=== PATIENT | female | born 1970 | race Caucasian/White ===

== ENCOUNTER → 2017-06-11 | Outpatient (CLI) | payer SELFPAY ==
[~2017-06-11] MED LIST: ALPR-557 PO; AMIT50TA3 PO; ATEN25TA PO; DULO60CA6 PO; HYDR-2890 PO
[2017-06-11 08:51] LABS: MEAN PLATELET VOLUME 10.3 FL (7.4-10.4); RED BLOOD COUNT 4.31 10^6/uL (4.35-5.85); RED CELL DISTRIBUTION WIDTH 13.1 % (10.0-14.5)
[2017-06-11 09:04] LABS: BILIRUBIN,URINE NEGATIVE (NEGATIVE); KETONES,URINE NEGATIVE (NEGATIVE); LEUKOCYTE ESTERASE ,URINE 1+ (NEGATIVE); NITRITE,URINE NEGATIVE (NEGATIVE); PH,URINE 6.5 (5-9); PROTEIN,URINE NEGATIVE (NEGATIVE); UROBILINOGEN,URINE NORMAL (NORMAL)
[2017-06-11 09:12] LABS: ALANINE AMINOTRANSFERASE 14 U/L (0-55); ALBUMIN 3.6 GM/DL (3.2-4.5); ANION GAP 10 MMOL/L (5-14); ASPARTATE AMINO TRANSFERASE 24 U/L (5-34); BILIRUBIN,TOTAL 0.5 MG/DL (0.1-1.0); BLOOD UREA NITROGEN 6 MG/DL (7-18); BUN/CREATININE RATIO 8; CARBON DIOXIDE 23 MMOL/L (21-32); CHLORIDE 103 MMOL/L (98-107); CHOLESTEROL 224 MG/DL (< 200); CREATININE SERUM 0.73 MG/DL (0.60-1.30); DIRECT LDL 123 MG/DL (1-129); GFR ESTIMATED > 60; GLUCOSE 98 MG/DL (70-105); POTASSIUM 4.5 MMOL/L (3.6-5.0); SODIUM 136 MMOL/L (135-145); TOTAL PROTEIN 7.2 GM/DL (6.4-8.2); TRIGLYCERIDES 93 MG/DL (<150); VLDL CHOLESTEROL 19 MG/DL (5-40)
[2017-06-11 09:31] LABS: THYROID STIMULATING HORMONE 2.09 UIU/ML (0.35-4.94)
== END ==
LOC: LAB 08:26
PROVIDERS: ATTEND Family Medicine
DX: I10 Essential (primary) hypertension (principal); E78.5 Hyperlipidemia, unspecified; R82.99 Other abnormal findings in urine
CPT/HCPCS: 36415; 80053; 80061; 81000; 84443; 85027; 87077; 87088

== ENCOUNTER → 2017-06-27 | Outpatient (CLI) | payer SELFPAY ==
[2017-06-27 13:20] LABS: BILIRUBIN,URINE NEGATIVE (NEGATIVE); CLARITY,URINE CLEAR; COLOR,URINE YELLOW; GLUCOSE, URINE (UA) NEGATIVE (NEGATIVE); KETONES,URINE NEGATIVE (NEGATIVE); LEUKOCYTE ESTERASE ,URINE NEGATIVE (NEGATIVE); NITRITE,URINE NEGATIVE (NEGATIVE); PH,URINE 7 (5-9); PROTEIN,URINE NEGATIVE (NEGATIVE); UROBILINOGEN,URINE NORMAL (NORMAL)
[2017-06-27 13:29] LABS: BACTERIA,URINE FEW /HPF; WBC,URINE RARE /HPF
== END ==
LOC: LAB 12:59
PROVIDERS: ATTEND Family Medicine
DX: Z09 Encounter for follow-up examination after completed treatment for conditions other than malignant neoplasm (principal)
CPT/HCPCS: 81000

== ENCOUNTER → 2018-11-05 | Outpatient (CLI) | payer SELFPAY ==
[~2018-11-05] MED LIST changes: +NAPR-1071 PO
[2018-11-05 10:10] LABS: HEMOGLOBIN 14.4 G/DL (11.5-16.0)
[2018-11-05 10:13] LABS: BILIRUBIN,URINE NEGATIVE (NEGATIVE); CLARITY,URINE CLEAR; COLOR,URINE YELLOW; GLUCOSE, URINE (UA) NEGATIVE (NEGATIVE); KETONES,URINE NEGATIVE (NEGATIVE); LEUKOCYTE ESTERASE ,URINE NEGATIVE (NEGATIVE); NITRITE,URINE NEGATIVE (NEGATIVE); PH,URINE 7 (5-9); PROTEIN,URINE NEGATIVE (NEGATIVE); UROBILINOGEN,URINE NORMAL (NORMAL)
[2018-11-05 10:23] LABS: BACTERIA,URINE TRACE /HPF
[2018-11-05 10:41] LABS: ALANINE AMINOTRANSFERASE 17 U/L (0-55); ALBUMIN 3.8 GM/DL (3.2-4.5); ALKALINE PHOSPHATASE 103 U/L (40-136); BILIRUBIN,TOTAL 0.5 MG/DL (0.1-1.0); BUN/CREATININE RATIO 6; CALCIUM 9.5 MG/DL (8.5-10.1); CARBON DIOXIDE 25 MMOL/L (21-32); CHLORIDE 104 MMOL/L (98-107); CHOLESTEROL 242 MG/DL (< 200); CREATININE SERUM 0.68 MG/DL (0.60-1.30); GFR ESTIMATED > 60; GLUCOSE 83 MG/DL (70-105); HDL CHOLESTEROL 109 MG/DL (40-60); POTASSIUM 4.2 MMOL/L (3.6-5.0); SODIUM 139 MMOL/L (135-145); TOTAL PROTEIN 7.2 GM/DL (6.4-8.2); TRIGLYCERIDES 66 MG/DL (<150); VLDL CHOLESTEROL 13 MG/DL (5-40)
== END ==
LOC: LAB 09:54
PROVIDERS: ATTEND Family Medicine
DX: I10 Essential (primary) hypertension (principal); R60.9 Edema, unspecified
CPT/HCPCS: 36415; 80053; 80061; 81000; 85014; 85018

== ENCOUNTER 2018-11-10 13:44 | Emergency (ER) | payer OTHER ==
[~2018-11-10] VITALS: Ht 172.7 cm; Wt 90.7 kg
[~2018-11-10 13:44] MED LIST changes: -NAPR-1071 PO
--- NOTE | 2018-11-10 13:50 | ED Abdominal Pain ---
General Stated Complaint: L KNEE PAIN;FALL Source of Information: Patient Exam Limitations: No Limitations History of Present Illness Date Seen by Provider: November 10, 2018 Time Seen by Provider: 13:48 Initial Comments To ER with reports of left knee pain. She was of [facility] when she fell onto a flexed left knee. She states that she is had previous arthroscopy to the left knee and has been told that she needs a left knee replacement. Timing/Duration: 1/2 Hour Severity/Quality: Moderate Radiation: No Radiation Allergies and Home Medications Allergies Coded Allergies: Cortisone (Unverified Adverse Reaction, NAUSEA, 12/02/12) CORTISONE SHOTS IN KNEE Home Medications Alprazolam 0.5 Mg Tab, 0.5 MG PO QID, (Reported) Amitriptyline Hcl 50 Mg Tab, 50 MG PO HS PRN, (Reported) PRN SLEEP Atenolol 25 Mg Tablet, 25 MG PO DAILY, (Reported) Duloxetine Hcl 60 Mg Capsule.dr, 60 MG PO DAILY, (Reported) Hydrocodone Bit/Acetaminophen 1 Each Tablet, 10-325 MG PO TID, (Reported) Patient Home Medication List Home Medication List Reviewed: Yes Review of Systems Review of Systems Constitutional: see HPI EENTM: No Symptoms Reported Respiratory: No Symptoms Reported Cardiovascular: No Symptoms Reported Gastrointestinal: No Symptoms Reported Genitourinary: No Symptoms Reported Musculoskeletal: see HPI Skin: no symptoms reported Psychiatric/Neurological: No Symptoms Reported Physical Exam Vital Signs Vital Signs - First Documented 11/10/18 13:45 Temp 98.0 Pulse 68 Resp 20 B/P (MAP) 179/98 (125) Pulse Ox 100 Capillary Refill : Height/Weight/BMI Height: '" Weight: 275lbs. 0.0oz. 124.559841pf; BMI Method: General Appearance: WD/WN, no apparent distress HEENT: PERRL/EOMI, normal ENT inspection Respiratory: no respiratory distress, no accessory muscle use Gastrointestinal: normal bowel sounds, soft Extremities: pelvis stable, other (Tenderness with some ecchymosis to the anterior left knee over the patella. The patella is intact at least by palpation. She is able to lift her left foot up off of the bed. Distally at the foot she is neurovascularly intact.) Neurologic/Psychiatric: alert, normal mood/affect, oriented x 3 Skin: normal color, warm/dry Progress/Results/Core Measures Results/Orders My Orders Orders - JARRED MALAVE APRN Knee, Left, 3 Views (11/10/18 13:47) Vital Signs/I&O 11/10/18 13:45 Temp 98.0 Pulse 68 Resp 20 B/P (MAP) 179/98 (125) Pulse Ox 100 Departure Impression Primary Impression: Contusion of knee Qualified Codes: S80.02XA - Contusion of left knee, initial encounter Disposition: HOME, SELF-CARE Condition: Stable Departure-Patient Inst. Decision time for Depature: 14:40 Referrals: ANTONIO CURTIS MD (PCP/Family) Primary Care Physician Patient Instructions: Contusion (DC) Add. Discharge Instructions: 1. Ice pack at 30 minute intervals every 1-2 hours 2. Bernard wrap to the knee 3. Follow-up with your primary care provider or your orthopedic surgeon for further evaluation within 1 week. Scripts Naproxen (Naprosyn) 500 Mg Tablet 500 MG PO BID PRN for PAIN-MODERATE TO SEVERE, #30 TAB 0 Refills Prov: JARRED MALAVE APRN 11/10/18 Work/School Note: Work Release Form Date Seen in the Emergency Department: November 10, 2018 Return to Work: November 12, 2018 JARRED MALAVE APRN November 10, 2018 13:50
--- NOTE | 2018-11-10 14:38 | Diagnostic Imaging Report ---
INDICATION: Fall and left knee pain. TIME OF EXAM: 02:23 p.m. Three views of the left knee were obtained. There is a medial and lateral compartmental degenerative change with joint space narrowing and marginal spurring. There are spurring of the tibial spines. There appears to be some chondrocalcinosis of the medial compartment. No fracture, dislocation or effusion is detected. IMPRESSION: Degenerative changes. No acute bony abnormality is detected. Dictated by: Dictated on workstation # [id number]
[2018-11-10] MEDS ORDERED: NAPR-1071 PO (14:41)
[2018-11-10 14:50] VITALS: BP 179/98
== END 2018-11-10 15:00 | disposition home or self-care (01) ==
LOC: EDUNIT# 13:44 → ER 13:45
DX: S80.02XA Contusion of left knee, initial encounter (principal); Z88.8 Allergy status to other drugs, medicaments and biological substances; W18.30XA Fall on same level, unspecified, initial encounter; X50.1XXA Overexertion from prolonged static or awkward postures, initial encounter
CPT/HCPCS: 73562

== ENCOUNTER → 2019-12-31 | Outpatient (CLI) | payer OTHER ==
[~2019-12-31] MED LIST changes: +NAPR-1071 PO
[2019-12-31 09:16] LABS: BILIRUBIN,URINE NEGATIVE (NEGATIVE); CLARITY,URINE CLEAR; COLOR,URINE YELLOW; GLUCOSE, URINE (UA) NEGATIVE (NEGATIVE); KETONES,URINE NEGATIVE (NEGATIVE); LEUKOCYTE ESTERASE ,URINE NEGATIVE (NEGATIVE); NITRITE,URINE NEGATIVE (NEGATIVE); PH,URINE 7.5 (5-9); PROTEIN,URINE NEGATIVE (NEGATIVE)
[2019-12-31 09:23] LABS: BACTERIA,URINE NEGATIVE /HPF; SQUAMOUS EPITHELIAL CELL,UR RARE /HPF; WBC,URINE RARE /HPF
[2019-12-31 09:38] LABS: BUN/CREATININE RATIO 10; CALCIUM 9.5 MG/DL (8.5-10.1); CARBON DIOXIDE 24 MMOL/L (21-32); CHLORIDE 99 MMOL/L (98-107); CHOLESTEROL 227 MG/DL (< 200); CREATININE SERUM 0.73 MG/DL (0.60-1.30); GFR ESTIMATED > 60; GLUCOSE 88 MG/DL (70-105); HDL CHOLESTEROL 111 MG/DL (40-60); POTASSIUM 4.5 MMOL/L (3.6-5.0); SODIUM 136 MMOL/L (135-145); TRIGLYCERIDES 62 MG/DL (<150); VLDL CHOLESTEROL 12 MG/DL (5-40)
== END ==
LOC: LAB 08:42
PROVIDERS: ATTEND Family Medicine
DX: I10 Essential (primary) hypertension (principal)
CPT/HCPCS: 36415; 80048; 80061; 81000

== ENCOUNTER 2020-01-12 09:37 | Emergency (ER) | payer OTHER ==
[~2020-01-12] VITALS: Ht 170.1 cm; Wt 88.6 kg
--- NOTE | 2020-01-12 09:57 | ED Upper Extremity ---
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 She had got out of her car and was wearing flip-flops. She slipped on the wet grass and fell forward. She did partially catch herself but landed on her right shoulder. Had pain at that time. Denies hitting her head, loss of consciousness or abrasions. Complains of pain to her right shoulder when she tries to move or lift her arm. Denies weakness, numbness or difficulty with movement of her hand. Onset: just prior to arrival (approximately 30 minutes ago) Severity: moderate Pain/Injury Location: right shoulder Method of Injury: direct blow, fell Modifying Factors: Improves With Immobilization; Worse With Movement (YI GIBBONS MD) Allergies and Home Medications Allergies Coded Allergies: Cortisone (Unverified Adverse Reaction, NAUSEA, 12/02/12) CORTISONE SHOTS IN KNEE Home Medications Alprazolam 0.5 Mg Tab, 0.5 MG PO QID, (Reported) Amitriptyline Hcl 50 Mg Tab, 50 MG PO HS PRN, (Reported) PRN SLEEP Atenolol 25 Mg Tablet, 25 MG PO DAILY, (Reported) Duloxetine Hcl 60 Mg Capsule.dr, 60 MG PO DAILY, (Reported) Hydrocodone Bit/Acetaminophen 1 Each Tablet, 10-325 MG PO TID, (Reported) Naproxen 500 Mg Tablet, 500 MG PO BID PRN for PAIN-MODERATE TO SEVERE Prescribed by: JARRED MALAVE on 11/10/18 9441 Patient Home Medication List Home Medication List Reviewed: Yes (YI GIBBONS MD) Review of Systems Constitutional: see HPI; No chills, No fever Respiratory: no symptoms reported Cardiovascular: no symptoms reported Musculoskeletal: see HPI, joint pain, muscle pain, muscle stiffness Skin: no symptoms reported Psychiatric/Neurological: No Symptoms Reported (YI GIBBONS MD) Past Fvlabde-Cdrfws-Vayyyg Hx Past Med/Social Hx: Reviewed Nursing Past Med/Soc Hx (YI GIBBONS MD) Patient Social History Alcohol Use: Occasionally Uses Recreational Drug Use: No Smoking Status: Current Everyday Smoker Type Used: Cigarettes 2nd Hand Smoke Exposure: Yes Recent Foreign Travel: No Contact w/Someone Who Travel: No Recent Infectious Disease Expo: No Recent Hopitalizations: No (YI GIBBONS MD) Seasonal Allergies Seasonal Allergies: No (YI GIBBONS MD) Past Medical History Orthopedic Respiratory: No Cardiac: Yes Hypertension Neurological: No Gastrointestinal: No Musculoskeletal: Yes (TORN MEDIAL & LATERAL MENISCUS LEFT KNEE) Endocrine: No Integumentary: No Blood Disorders: No (YI GIBBONS MD) Family Medical History Reviewed Nursing Family Hx (YI GIBBONS MD) No Pertinent Family Hx (YI GIBBONS MD) Physical Exam Vital Signs Vital Signs - First Documented 01/12/20 09:45 Temp 36.7 Pulse 85 Resp 18 B/P (MAP) 145/94 (111) (JARRED MALAVE APRN) Vital Signs Capillary Refill : Less Than 3 Seconds (YI GIBBONS MD) Height, Weight, BMI Height: 5'8.00" Weight: 200lbs. 0oz. 90.563158ni; 30.00 BMI Method:Stated General Appearance: WD/WN, mild distress (pain related) Cardiovascular: regular rate, rhythm, no murmur Respiratory: no respiratory distress, wheezing (few scattered expiratory wheezes) Back: normal inspection, no vertebral tenderness Shoulder: limited ROM (pain limited), pain (pain with active range of motion that minimal or none with passive range of motion of the right shoulder except for with high abduction); No soft tissue tenderness, No swelling Elbow/Forearm: normal inspection, non-tender, no evidence of injury, normal ROM, Right Wrist: Yes normal inspection, Yes normal ROM Hand: non-tender, no evidence of injury, normal ROM, Right Neurologic/Tendon: normal sensation, normal motor functions Neurologic/Psychiatric: alert, oriented x 3 Skin: normal color, warm/dry (YI GIBBONS MD) Progress/Results/Core Measures Results/Orders Vital Signs/I&O 01/12/20 09:45 Temp 36.7 Pulse 85 Resp 18 B/P (MAP) 145/94 (111) (MALAVE,PETER J [employer]) Blood Pressure Mean: 111 Progress Progress Note : Progress Note Seen and evaluated. X-ray right shoulder and right clavicle. Patient has her own pain medicine and she will take that after x-ray. Declined pain medicine from the emergency department. Monitor patient. (YI GIBBONS MD) Diagnostic Imaging Diagonstic Imaging: Xray Plain Films/CT/US/NM/MRI: other Comments [facility] [place] NAME: MISTI LOW [facility] REC#: [id number] PT STATUS: DEP ER : 1970 PHYSICIAN: YI GIBBONS MD ADMIT DATE: 01/12/20/ER Signed Date of Exam:01/12/20 SHOULDER, RIGHT, 3 VIEWS INDICATION: Fall with right shoulder injury. FINDINGS: AP, oblique, and trans-scapular views of the right shoulder reveal mildly displaced fracture through the distal clavicle without evidence of dislocation. No other acute fracture or malalignment is identified. Note is made of linear metallic object projecting over the midchest on the AP image. This is not confirmed on other views and may be artifactual. IMPRESSION: 1. Mildly displaced distal right clavicle fracture without dislocation. Otherwise, no acute abnormality is identified. 2. Clinical correlation would be useful with regard to wire-like metallic object projecting over the central chest on a single view. Dictated by: Dictated on workstation # [id number] Dict: 01/12/20 1032 Trans: 01/12/20 1206 [id number] Interpreted by: AMY BLANKENSHIP MD Electronically signed by: AMY BLANKENSHIP MD 01/12/20 1206 Diagonstic Imaging: Xray Plain Films/CT/US/NM/MRI: other Comments [facility] [place] NAME: MISTI LOW [facility] REC#: [id number] PT STATUS: DEP ER : 1970 PHYSICIAN: YI GIBBONS MD ADMIT DATE: 01/12/20/ER Signed Date of Exam:01/12/20 CLAVICLE, RIGHT INDICATION: Fall with right shoulder pain AP and angled views of the right clavicle reveal mildly displaced fracture through the distal shaft of the right clavicle. There appears to be maintenance of acromioclavicular joint. No other acute fracture or malalignment is identified. IMPRESSION: Mildly displaced distal right clavicle fracture without associated dislocation. Dictated by: Dictated on workstation # [id number] Dict: 01/12/20 1028 Trans: 01/12/20 1206 [facility] [id number] Interpreted by: AMY BLANKENSHIP MD Electronically signed by: AMY BLANKENSHIP MD 01/12/20 1206 (YI GIBBONS MD) Departure Impression Primary Impression: Clavicle fracture Qualified Codes: S42.031A - Displaced fracture of lateral end of right clavicle, initial encounter for closed fracture Disposition: HOME, SELF-CARE Condition: Stable Departure-Patient Inst. Decision time for Depature: 10:42 (JARRED MALAVE APRN) Referrals: ANTONIO CURTIS MD (PCP/Family) Primary Care Physician BRANDON URIAS MD, MICHAEL P MD Patient Instructions: Clavicle Fracture Add. Discharge Instructions: 1. Wear the sling at all 3 follow-up with orthopedics 2. Follow-up with your doctor next week. Return to ER for any worsening. All discharge instructions reviewed with patient and/or family. Voiced understanding. YI GIBBONS MD Jan 12, 2020 09:57 JARRED MALAVE APRN Jan 12, 2020 10:43
--- OUTSIDE RECORDS SUMMARY | 2020-01-12 10:34 | XMS REPORT ---
Author Author Chiara Denise Doctor Organization [facility] Address Unknown Phone Unavailable Care Team Providers Care Head Of Academic Technology Name Role Phone Migration, Doctor Unavailable Unavailable PROBLEMS Type Condition ICD9-CM Code [id number] Code Onset Dates Condition S tatus SNOMED Code Problem Pain in joint, lower leg 719.46 Activ e [id number] Problem Other and unspecified derangement of medial meniscus 717.3 Active 802031527 ALLERGIES No Information ENCOUNTERS Encounter Location Date Diagnosis [address] [id number] [id number] Jul, Dental caries, unspecified K02.[address] [id number] [id number] Jun, Dental examination Z01.20 [place] [address] [place] [phone] Sep, [facility] [address] [place] [id number] [place] [phone] Sep, [facility] [address] [place] [id number] [place] [phone] October, [facility] [address] [facility] [id number] [address] [place] [phone] October, [facility] [address] [place] [id number] [place] [phone] October, [facility] [address] [place] [phone] October, IMMUNIZATIONS No Known Immunizations SOCIAL HISTORY Never Assessed REASON FOR VISIT [facility] [place] PLAN OF CARE VITAL SIGNS MEDICATIONS No Known Medications RESULTS No Results PROCEDURES No Known procedures INSTRUCTIONS MEDICATIONS ADMINISTERED No Known Medications MEDICAL (GENERAL) HISTORY Type Description Date Medical History high blood pressure Medical History arthritis Medical History back trouble Surgical History gallbladder Surgical History left knee Surgical History tublar Surgical History tonsils
--- OUTSIDE RECORDS SUMMARY | 2020-01-12 10:34 | XMS REPORT ---
Author Author Chiara Denise Doctor Organization [facility] Address Unknown Phone Unavailable Care Team Providers Care Soaking Room Operator Name Role Phone Migration, Doctor Unavailable Unavailable PROBLEMS Type Condition ICD9-CM Code [id number] Code Onset Dates Condition S tatus SNOMED Code Problem Pain in joint, lower leg 719.46 Activ e [id number] Problem Other and unspecified derangement of medial meniscus 717.3 Active 836415461 ALLERGIES No Information ENCOUNTERS Encounter Location Date Diagnosis [address] [id number] [id number] Jul, Dental caries, unspecified K02.[address] [id number] [id number] Jun, Dental examination Z01.20 [place] [address] [place] [id number] [place] [phone] Sep, [place] [address] [place] [id number] [place] [phone] Sep, [place] [address] [place] [id number] [place] [phone] October, [place] [address] [facility] [id number] [place] [phone] October, [place] [address] [place] [id number] [place] [phone] October, [place] [address] [place] [phone] October, IMMUNIZATIONS No Known Immunizations SOCIAL HISTORY Never Assessed REASON FOR VISIT [facility] [place] PLAN OF CARE VITAL SIGNS MEDICATIONS Medication Instructions Dosage Frequency Start Date End Date Duration S tatus Atenolol 25 mg take 1 tablet (25 mg) by oral route once da aidee October, Active amitriptyline 50 mg take 1 tablet (50 mg) by ora l route once daily at bedtime October, Active Hydrocodone-Acetaminophen 10-325 mg take 1 tablet by oral route every 4-6 hours as needed for pain October, Act viridiana Cymbalta 60 mg take 1 capsule (60 mg) by oral route once d aily October, Active Alprazolam 0.5 mg take 1 tablet (0.5 mg) by oral route 3 times per day October, Active RESULTS No Results PROCEDURES No Known procedures INSTRUCTIONS MEDICATIONS ADMINISTERED No Known Medications MEDICAL (GENERAL) HISTORY Type Description Date Medical History high blood pressure Medical History arthritis Medical History back trouble Surgical History gallbladder Surgical History left knee Surgical History tublar Surgical History tonsils
--- OUTSIDE RECORDS SUMMARY | 2020-01-12 10:34 | XMS REPORT ---
Author Author Chiara RAM Organization [employer] Address Unknown Phone Unavailable Care Team Providers Care Legal Aid Name Role Phone DIOGO RAM CP Unavailable Allergies No Known Allergies Problems Problem Type Condition Code Onset Dates Condition Statu s Problem Other and unspecified derangement of medial meniscus 7 17.3 Active Assessment Dental examination Z01.20 Active Problem Pain in joint, lower leg 719.46 Act viridiana Medications Medication Code System Code Instructions Start Date End Date Status Dosage Doxepin HCl [facility] [address]-25 not de fined Hydrocodone Bitartrate [facility] [address]-54 not defined Xanax [facility] [address]-65 not define d Procedures Procedure Coding System Code Date PANORAMIC FILM SEE ALSO CODE 94199 CPT-4 D0330 Jul 13, 2015 COMP ORAL EVALUATION - NEW/EST PT CPT-4 D0150 Jul 13, 2015 Vital Signs Date/Time: Jul 13, 2015 Blood Pressure Diastolic 86 mmHg Blood Pressure Systolic 151 mmHg Height 69 in Results No Known Results Summary Purpose [employer] Submission
--- OUTSIDE RECORDS SUMMARY | 2020-01-12 10:34 | XMS REPORT ---
Author Author Chiara Denise Doctor Organization [facility] Address Unknown Phone Unavailable Care Team Providers Care Anesthesia Associate Name Role Phone Migration, Doctor Unavailable Unavailable PROBLEMS Type Condition ICD9-CM Code JTG99-JJ Code Onset Dates Condition S tatus SNOMED Code Problem Pain in joint, lower leg 719.46 Activ e [id number] Problem Other and unspecified derangement of medial meniscus 717.3 Active 521963134 ALLERGIES No Information ENCOUNTERS Encounter Location Date Diagnosis [address] [id number] [id number] Jul, Dental caries, unspecified K02.[address] [id number] [id number] Jun, Dental examination Z01.20 [place] [address] [place] [phone] Sep, [facility] [address] [place] [id number] [place] [phone] Sep, [facility] [address] [place] [id number] [place] [phone] October, [facility] [address] [facility] [id number] [address] [place] [phone] October, [facility] [address] [place] [id number] [place] [phone] October, [facility] [address] [place] [phone] October, IMMUNIZATIONS No Known Immunizations SOCIAL HISTORY Never Assessed REASON FOR VISIT [facility] [place] PLAN OF CARE VITAL SIGNS MEDICATIONS No Known Medications RESULTS No Results PROCEDURES No Known procedures INSTRUCTIONS MEDICATIONS ADMINISTERED No Known Medications MEDICAL (GENERAL) HISTORY Type Description Date Medical History high blood pressure Medical History arthritis Medical History back trouble Surgical History gallbladder Surgical History left knee Surgical History tublar Surgical History tonsils
--- OUTSIDE RECORDS SUMMARY | 2020-01-12 10:35 | XMS REPORT | Continuity of Care Document ---
Demographics Preferred Language Unknown Marital Status Unknown Jehovah'S Witness Affiliation Unknown Race Unknown Ethnic Group Unknown Author Organization Unknown Address Unknown Phone Unavailable Allergies Active Description Code Type Severity Reaction Onset Reported/Identified Relationship to Patient Clinical Status Yes NO KNOWN DRUG ALLERGIES UNKNOWN UNKNOWN Yes cortisone [id number] Drug Allergy Unknown NAUSEA 12/02/2012 Medications There is no data. Problems Date Dx Coded Attending Type Code Diagnosis Diagnosed By 10/25/2010 724.2 BACK PAIN, LOWER 10/25/2010 V58.69 PAT G-TERM (CURRENT) USE OF OTHER MEDICATIONS 11/04/2012 719.46 CARON N IN JOINT INVOLVING LOWER LEG 11/04/2012 719.46 CARON N IN JOINT INVOLVING LOWER LEG 11/04/2012 719.46 CARON N IN JOINT INVOLVING LOWER LEG 11/05/2012 717.3 OTHE R AND UNSPECIFIED DERANGEMENT OF MEDIAL MENISCUS 11/05/2012 717.3 OTHE R AND UNSPECIFIED DERANGEMENT OF MEDIAL MENISCUS 12/07/2012 JOAQUIM MARTI MD Ot 278. 00 OBESITY, NOS 12/07/2012 JOAQUIM MARTI MD Ot 305. 1 TOBACCO USE DISORDER 12/07/2012 JOAQUIM MARTI MD Ot 727. 09 SYNOVITIS NEC 12/07/2012 JOAQUIM MARTI MD Ot 733. 92 CHONDROMALACIA 12/07/2012 JOAQUIM MARTI MD Ot 836. 1 TEAR LAT MENISC KNEE-CUR 12/07/2012 JOAQUIM MARTI MD Ot E000 .8 OTHER EXTERNAL CAUSE STATUS 12/07/2012 JOAQUIM MARTI MD Ot E927 .0 OVEREXERTION FROM SUDDEN STRENUOUS MOVEM 12/07/2012 JOAQUIM MARTI MD Ot V58. 69 OTH MED,LT,CURRENT USE 04/22/2013 VINCE HARMON, CALE Sifuentes Ot 453.40 ACUTE VENOUS EMBOLISM THROMBOSIS UNSP 06/13/2014 EVER HARMON, HARPER Ferro Ot 401 .1 06/13/2014 HARPER CURTIS MD Ot 783 .1 06/13/2014 Ot 722.52 06/13/2014 ARABELLA YUN SIDE PANEL HANGER Ot 717. 5 06/13/2014 ARABELLA YUN SIDE PANEL HANGER Ot 717. 3 06/13/2014 ARABELLA YUN SIDE PANEL HANGER Ot 717. 40 06/13/2014 ARABELLA YUN SIDE PANEL HANGER Ot 719. 06 06/13/2014 JOAQUIM MARTI MD L Ot 717. 3 06/13/2014 JOAQUIM MARTI MD L Ot V72. 81 06/13/2014 JOAQUIM MARTI MD L Ot V74. 8 06/13/2014 JOAQUIM MARTI MD L Ot 453. 40 06/13/2014 Ot 453.40 06/13/2014 HARPER CURTIS MD Ot 401 .1 06/13/2014 HARPER CURTIS MD A Ot 783 .1 07/11/2014 Ot 722.52 07/11/2014 ARABELLA YUN SIDE PANEL HANGER Ot 717. 5 07/11/2014 ARABELLA YUN SIDE PANEL HANGER Ot 717. 3 07/11/2014 ARABELLA YUN SIDE PANEL HANGER Ot 717. 40 07/11/2014 ARABELLA YUN SIDE PANEL HANGER Ot 719. 06 07/11/2014 JOAQUIM MARTI MD L Ot 717. 3 07/11/2014 JOAQUIM MARTI MD L Ot V72. 81 07/11/2014 JOAQUIM MARTI MD Ot V74. 8 07/11/2014 JOAQUIM MARTI MD Ot 453. 40 07/11/2014 Ot 453.40 07/11/2014 HARPER CURTIS MD Ot 401 .1 07/11/2014 HARPER CURTIS MD A Ot 783 .1 01/05/2015 HARPER CURTIS MD A Ot 401 .1 01/05/2015 JONATHON CURTIS MDA A Ot 783 .1 03/14/2015 Ot 722.52 03/14/2015 ARABELLA YUN SIDE PANEL HANGER Ot 717. 5 03/14/2015 ARABELLA YUN SIDE PANEL HANGER Ot 717. 3 03/14/2015 ARABELLA YUN SIDE PANEL HANGER Ot 717. 40 03/14/2015 ARABELLA YUN SIDE PANEL HANGER Ot 719. 06 03/14/2015 JOAQUIM MARTI MD L Ot 717. 3 03/14/2015 JOAQUIM MARTI MD L Ot V72. 81 03/14/2015 JOAQUIM MARTI MD L Ot V74. 8 03/14/2015 JOAQUIM MARTI MD Ot 453. 40 03/14/2015 Ot 453.40 03/14/2015 HARPER CURTIS MD Ot 401 .1 03/14/2015 HARPER CURTIS MD Ot 783 .1 06/05/2015 HARPER CURTIS MD Ot 401 .9 06/05/2015 HARPER CURTIS MD Ot V58.69 06/15/2015 HARPER CURTIS MD Ot 401 .9 06/15/2015 HARPER CURTIS MD Ot V58.69 06/03/2016 ARABELLA YUN SIDE PANEL HANGER Ot 717. 5 DERANGEMENT MENISCUS NEC 06/03/2016 ARABELLA YUN SIDE PANEL HANGER Ot 717. 3 DERANG MED MENISCUS NEC 06/03/2016 ARABELLA YUN SIDE PANEL HANGER Ot 717. 40 DERANG LAT MENISCUS NOS 06/03/2016 ARABELLA YUN SIDE PANEL HANGER Ot 719. 06 JOINT EFFUSION-L/LEG 06/03/2016 JOAQUIM MARTI MD Ot 717. 3 DERANG MED MENISCUS NEC 06/03/2016 JOAQUIM MARTI MD Ot V72. 81 [id number] CARDIOVASCULAR 06/03/2016 JOAQUIM MARTI MD Ot V74. 8 SCREEN-BACTERIAL DIS NEC 06/03/2016 JOAQUIM MARTI MD Ot 453. 40 ACUTE VENOUS EMBOLISM THROMBOSIS UNSP 06/03/2016 Ot 453.40 ACU TE VENOUS EMBOLISM THROMBOSIS UNSP 06/03/2016 HARPER CURTIS MD Ot 401 .1 BENIGN HYPERTENSION 06/03/2016 HARPER CURTIS MD Ot 783 .1 ABNORMAL WEIGHT GAIN 06/03/2016 HARPER CURTIS MD Ot 401 .9 HYPERTENSION NOS 06/03/2016 HARPER CURTIS MD Ot V58.69 OT MED,LT,CURRENT USE 06/04/2016 HARPER CURTIS MD Ot I10 ESSENTIAL (PRIMARY) HYPERTENSION 06/09/2016 HARPER CURTIS MD Ot I10 ESSENTIAL (PRIMARY) HYPERTENSION 07/02/2016 HARPER CURTIS MD Ot I10 ESSENTIAL (PRIMARY) HYPERTENSION 07/03/2016 HARPER CURTIS MD Ot I10 ESSENTIAL (PRIMARY) HYPERTENSION 03/07/2017 W 278.00 OBE SITY, UNSPECIFIED 03/07/2017 W 401.9 UNSP ECIFIED ESSENTIAL HYPERTENSION 03/07/2017 W 715.96 OST EOARTHROSIS, UNSPECIFIED WHETHER GENERALIZED OR LOCALIZED, INVOLVING LOWER LEG 03/07/2017 A 722.52 DEG ENERATION OF LUMBAR OR LUMBOSACRAL INTERVERTEBRAL DISC 03/07/2017 W E66.8 OTHE R OBESITY 03/07/2017 W I10 ESSENT IAL (PRIMARY) HYPERTENSION 03/07/2017 W M17.9 OSTE OARTHRITIS OF KNEE, UNSPECIFIED 03/07/2017 A 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, THORACOLUMBAR REGION 06/04/2017 W 401.1 DIAN GN ESSENTIAL HYPERTENSION 06/04/2017 W 719.46 CARON N IN JOINT INVOLVING LOWER LEG 06/04/2017 A 724.5 BACK ACHE, UNSPECIFIED 06/04/2017 W I10 ESSENT IAL (PRIMARY) HYPERTENSION 06/04/2017 W M25.569 PA IN IN UNSPECIFIED KNEE 06/04/2017 A R52 PAIN, UNSPECIFIED 06/27/2017 HARPER CURTIS MD Ot E78 .5 HYPERLIPIDEMIA, UNSPECIFIED 06/27/2017 HARPER CURTIS MD Ot I10 ESSENTIAL (PRIMARY) HYPERTENSION 06/27/2017 HARPER CURTIS MD Ot R82.99 OTHER ABNORMAL FINDINGS IN URINE 07/29/2017 HARPER CURTIS MD Ot E78 .5 HYPERLIPIDEMIA, UNSPECIFIED 07/29/2017 HARPER CURTIS MD Ot I10 ESSENTIAL (PRIMARY) HYPERTENSION 07/29/2017 HARPER CURTIS MD Ot R82.99 OTHER ABNORMAL FINDINGS IN URINE 07/29/2017 HARPER CURTIS MD Ot Z09 ENCNTR FOR F/U EXAM AFT TRTMT FOR COND O 09/26/2017 W 715.96 OST EOARTHROSIS, UNSPECIFIED WHETHER GENERALIZED OR LOCALIZED, INVOLVING LOWER LEG 09/26/2017 A 724.2 LUMBAGO 09/26/2017 W M17.9 OSTE OARTHRITIS OF KNEE, UNSPECIFIED 09/26/2017 A M54.5 LOW BACK PAIN 12/19/2017 W 401.0 GIULIA GNANT ESSENTIAL HYPERTENSION 12/19/2017 W 719.46 CARON N IN JOINT INVOLVING LOWER LEG 12/19/2017 A 724.2 LUMBAGO 12/19/2017 W I10 ESSENT IAL (PRIMARY) HYPERTENSION 12/19/2017 W M25.569 PA IN IN UNSPECIFIED KNEE 12/19/2017 A M54.5 LOW BACK PAIN 03/13/2018 A 401.0 GIULIA NENA ESSENTIAL HYPERTENSION 03/13/2018 W 715.90 OST EOARTHROSIS, UNSPECIFIED WHETHER GENERALIZED OR LOCALIZED, INVOLVING UNSPECIFIED SITE 03/13/2018 W 724.2 LUMBAGO 03/13/2018 A I10 ESSENT IAL (PRIMARY) HYPERTENSION 03/13/2018 W M19.90 UNS PECIFIED OSTEOARTHRITIS, UNSPECIFIED SITE 03/13/2018 W M54.5 LOW BACK PAIN 04/17/2018 HARPER CURTIS MD, Ot Z09 ENCNTR FOR F/U EXAM AFT TRTMT FOR COND O 04/17/2018 HARPER CURTIS MD, Ot E78 .5 HYPERLIPIDEMIA, UNSPECIFIED 04/17/2018 HARPER CURTIS MD, Ot I10 ESSENTIAL (PRIMARY) HYPERTENSION 04/17/2018 HARPER CURTIS MD Ot R82.99 OTHER ABNORMAL FINDINGS IN URINE 11/10/2018 HARPER CURTIS MD Ot 401 .1 BENIGN HYPERTENSION 11/10/2018 HARPER CURTIS MD Ot 783 .1 ABNORMAL WEIGHT GAIN 11/10/2018 HARPER CURITS MD Ot 401 .9 HYPERTENSION NOS 11/10/2018 HARPER CURTIS MD, Ot V58.69 OTH MED,LT,CURRENT USE 11/10/2018 HARPER CURTIS MD Ot I10 ESSENTIAL (PRIMARY) HYPERTENSION 11/10/2018 HARPER CURTIS MD, Ot E78 .5 HYPERLIPIDEMIA, UNSPECIFIED 11/10/2018 HARPER CURTIS MD Ot I10 ESSENTIAL (PRIMARY) HYPERTENSION 11/10/2018 HARPER CURTIS MD Ot R82.99 OTHER ABNORMAL FINDINGS IN URINE 11/10/2018 HARPER CURTIS MD, Ot Z09 ENCNTR FOR F/U EXAM AFT TRTMT FOR COND O 11/10/2018 JARRED MALAVE APRN Ot M25.562 PAIN IN LEFT KNEE 11/10/2018 JARRED MALAVE APRN Ot S80.02XA CONTUSION OF LEFT KNEE, INITIAL ENCOUNTE 11/10/2018 JARRED MALAVE APRN Ot W18.30XA FALL ON SAME LEVEL, UNSPECIFIED, INITIAL 11/10/2018 JARRED MALAVE APRN Ot X50.1XXA OVEREXERTION FROM PROLONGED STATIC OR AW 11/10/2018 JARRED MALAVE APRN Ot Z88 .8 ALLERGY STATUS TO OTH DRUG/MEDS/BIOL SUB 11/10/2018 HARPER CURTIS MD Ot 401 .1 BENIGN HYPERTENSION 11/10/2018 HARPER CURTIS MD Ot 783 .1 ABNORMAL WEIGHT GAIN 11/10/2018 HARPER CURTIS MD Ot 401 .9 HYPERTENSION NOS 11/10/2018 HARPER CURTIS MD Ot V58.69 OTH MED,LT,CURRENT USE 11/10/2018 HARPER CURTIS MD Ot I10 ESSENTIAL (PRIMARY) HYPERTENSION 11/10/2018 HARPER CURTIS MD Ot E78 .5 HYPERLIPIDEMIA, UNSPECIFIED 11/10/2018 HARPER CURTIS MD Ot I10 ESSENTIAL (PRIMARY) HYPERTENSION 11/10/2018 HARPER CURTIS MD Ot R82.99 OTHER ABNORMAL FINDINGS IN URINE 11/10/2018 HARPER CURTIS MD Ot Z09 ENCNTR FOR F/U EXAM AFT TRTMT FOR COND O 11/10/2018 HARPER CURTIS MD Ot I10 ESSENTIAL (PRIMARY) HYPERTENSION 11/10/2018 HARPER CURTIS MD Ot R60 .9 EDEMA, UNSPECIFIED 11/12/2018 JARRED MALAVE APRN Ot M25.562 PAIN IN LEFT KNEE 11/12/2018 JARRED MALAVE APRN Ot S80.02XA CONTUSION OF LEFT KNEE, INITIAL ENCOUNTE 11/12/2018 JARRED MALAVE APRN Ot W18.30XA FALL ON SAME LEVEL, UNSPECIFIED, INITIAL 11/12/2018 JARRED MALAVE APRN Ot X50.1XXA OVEREXERTION FROM PROLONGED STATIC OR AW 11/12/2018 JARRED MALAVE APRN Ot Z88 .8 ALLERGY STATUS TO OTH DRUG/MEDS/BIOL SUB 12/01/2018 HARPER CURTIS MD Ot 401 .1 BENIGN HYPERTENSION 12/01/2018 HARPER CURTSI MD Ot 783 .1 ABNORMAL WEIGHT GAIN 12/01/2018 HARPER CURTIS MD Ot 401 .9 HYPERTENSION NOS 12/01/2018 EVER MD, HARPER A Ot V58.69 OTH MED,LT,CURRENT USE 12/01/2018 EVER HARMON, HARPER Ferro Ot I10 ESSENTIAL (PRIMARY) HYPERTENSION 12/01/2018 EVER HARMON, HARPER Ferro Ot E78 .5 HYPERLIPIDEMIA, UNSPECIFIED 12/01/2018 EVER HARMON, HARPER A Ot I10 ESSENTIAL (PRIMARY) HYPERTENSION 12/01/2018 HARPER CURTIS MD Ot R82.99 OTHER ABNORMAL FINDINGS IN URINE 12/01/2018 HARPER CURTIS MD Ot Z09 ENCNTR FOR F/U EXAM AFT TRTMT FOR COND O 12/01/2018 HARPER CURTIS MD Ot I10 ESSENTIAL (PRIMARY) HYPERTENSION 12/01/2018 HARPER CURTIS MD Ot R60 .9 EDEMA, UNSPECIFIED 12/02/2018 EVER HARMON, HARPER Ferro Ot I10 ESSENTIAL (PRIMARY) HYPERTENSION 12/02/2018 EVER HARMON, HARPER Ferro Ot R60 .9 EDEMA, UNSPECIFIED 02/05/2019 HARPER CURTIS MD Ot I10 ESSENTIAL (PRIMARY) HYPERTENSION 02/05/2019 HARPER CURTIS MD Ot R60 .9 EDEMA, UNSPECIFIED 02/06/2019 HARPER CURTIS MD Ot I10 ESSENTIAL (PRIMARY) HYPERTENSION 02/06/2019 HARPER CURTIS MD Ot R60 .9 EDEMA, UNSPECIFIED 12/31/2019 HARPER CURTIS MD Ot 401 .9 HYPERTENSION NOS 12/31/2019 HARPER CURTIS MD Ot V58.69 OT MED,LT,CURRENT USE 12/31/2019 HARPER CURTIS MD Ot I10 ESSENTIAL (PRIMARY) HYPERTENSION 12/31/2019 HARPER CURTIS MD Ot E78 .5 HYPERLIPIDEMIA, UNSPECIFIED 12/31/2019 HARPER CURTIS MD A Ot I10 ESSENTIAL (PRIMARY) HYPERTENSION 12/31/2019 HARPER CURTIS MD Ot R82.99 OTHER ABNORMAL FINDINGS IN URINE 12/31/2019 HARPER CURTIS MD Ot Z09 ENCNTR FOR F/U EXAM AFT TRTMT FOR COND O 12/31/2019 HARPER CURTIS MD Ot I10 ESSENTIAL (PRIMARY) HYPERTENSION 12/31/2019 HARPER CURTIS MD Ot R60 .9 EDEMA, UNSPECIFIED 12/31/2019 HARPER CURTIS MD Ot 401 .9 HYPERTENSION NOS 12/31/2019 EVER HARMON, HARPER A Ot V58.69 OTH MED,LT,CURRENT USE 12/31/2019 HARPER CURTIS MD Ot I10 ESSENTIAL (PRIMARY) HYPERTENSION 12/31/2019 EVER HARMON, HARPER A Ot E78 .5 HYPERLIPIDEMIA, UNSPECIFIED 12/31/2019 HARPER CURTIS MD Ot I10 ESSENTIAL (PRIMARY) HYPERTENSION 12/31/2019 HARPER CURTIS MD Ot R82.99 OTHER ABNORMAL FINDINGS IN URINE 12/31/2019 HARPER CURTIS MD Ot Z09 ENCNTR FOR F/U EXAM AFT TRTMT FOR COND O 12/31/2019 HARPER CURTIS MD Ot I10 ESSENTIAL (PRIMARY) HYPERTENSION 12/31/2019 HARPER CURTIS MD Ot R60 .9 EDEMA, UNSPECIFIED 01/04/2020 HARPER CURTIS MD Ot I10 ESSENTIAL (PRIMARY) HYPERTENSION Procedures Code Description Performed By Per formed On [facility]THOP[employer] ARABELLA YUN 11/04/2012 27893 MRI EXTREMITY JOINT, LOWER LEFT, W/O CONTRAST 11/12/2012 Results Test Result Range Automated blood complete blood count (he mogram) panel - 06/03/16 08:58 Blood leukocytes automated count (number/volume) 8.5 10*3/uL 4.3-11.0 Blood erythrocytes automated count (number/volume) 4.10 10*6/uL 4.35-5.85 Venous blood hemoglobin measurement (mass/volume) 14.9 g/dL 11.5-16.0 Blood hematocrit (volume fraction) 42 % 35-52 Automated erythrocyte mean corpuscular volume 101 [foz_us] 80-99 Automated erythrocyte mean corpuscular h emoglobin (mass per erythrocyte) 36 pg 25-34 Automated erythrocyte mean corpuscular h emoglobin concentration measurement (mass/volume) 36 g/dL 32-36 Automated erythrocyte distribution width ratio 12. 9 % 10.0- 14.5 Automated blood platelet count (count/volume) 265 10*3/uL 130-400 Automated blood platelet mean volume measurement 9.7 [foz_us] 7.4-10.4 Comprehensive metabolic panel - 06/03/16 08:58 Serum or plasma sodium measurement (moles/volume) 137 mmol/L 135-145 Serum or plasma potassium measurement (moles/volume) 4.6 mmol/L 3.6-5.0 Serum or plasma chloride measurement (moles/volume) 102 mmol/L 98-107 Carbon dioxide 27 mmol/L 21-32 Serum or plasma anion gap determination (moles/volume) 8 mmol/L 5-14 Serum or plasma urea nitrogen measurement (mass/volume ) 9 mg/dL 7-18 Serum or plasma creatinine measurement (mass/volume) 0.75 mg/dL 0.60-1.30 Serum or plasma urea nitrogen/creatinine mass ratio 12 NRG Serum or plasma creatinine measurement w ith calculation of estimated glomerular filtration rate > NRG Serum or plasma glucose measurement (mass/volume) 110 mg/dL 70-105 Serum or plasma calcium measurement (mass/volume) 9.4 mg/dL 8.5-10.1 Serum or plasma total bilirubin measurement (mass/volu me) 0.5 mg/dL 0.1-1.0 Serum or plasma alkaline phosphatase woody surement (enzymatic activity/volume) 80 U/L 40-136 Serum or plasma aspartate aminotransfera se measurement (enzymatic activity/volume) 23 U/L 5-34 Serum or plasma alanine aminotransferase measurement (enzymatic activity/volume) 14 U/L 0-55 Serum or plasma protein measurement (mass/volume) 7.2 g/dL 6.4-8.2 Serum or plasma albumin measurement (mass/volume) 4.1 g/dL 3.2-4.5 Lipid 1996 panel - 06/03/16 08:58 Serum or plasma triglyceride measurement (mass/volume) 100 mg/dL <150 Serum or plasma cholesterol measurement (mass/volume) 242 mg/dL < 200 Serum or plasma cholesterol in HDL measurement (mass/v olume) 73 mg/dL 40-60 Cholesterol in LDL [mass/volume] in serum or plasma by direct assay 150 mg/dL 1-129 Serum or plasma cholesterol in VLDL measurement (mass/ volume) 20 mg/dL 5-40 THYROID STIMULATING HORMONE - 06/03/16 0 8:58 THYROID STIMULATING HORMONE 2.07 u[iU]/mL 0.35-4.94 Automated blood complete blood count (he mogram) panel - 06/11/17 08:47 Blood leukocytes automated count (number/volume) 9.0 10*3/uL 4.3-11.0 Blood erythrocytes automated count (number/volume) 4.31 10*6/uL 4.35-5.85 Venous blood hemoglobin measurement (mass/volume) 15.2 g/dL 11.5-16.0 Blood hematocrit (volume fraction) 44 % 35-52 Automated erythrocyte mean corpuscular volume 102 [foz_us] 80-99 Automated erythrocyte mean corpuscular h emoglobin (mass per erythrocyte) 35 pg 25-34 Automated erythrocyte mean corpuscular h emoglobin concentration measurement (mass/volume) 35 g/dL 32-36 Automated erythrocyte distribution width ratio 13. 1 % 10.0- 14.5 Automated blood platelet count (count/volume) 213 10*3/uL 130-400 Automated blood platelet mean volume measurement 10.3 [foz_us] 7.4-10.4 Comprehensive metabolic panel - 06/11/17 08:47 Serum or plasma sodium measurement (moles/volume) 136 mmol/L 135-145 Serum or plasma potassium measurement (moles/volume) 4.5 mmol/L 3.6-5.0 Serum or plasma chloride measurement (moles/volume) 103 mmol/L 98-107 Carbon dioxide 23 mmol/L 21-32 Serum or plasma anion gap determination (moles/volume) 10 mmol/L 5-14 Serum or plasma urea nitrogen measurement (mass/volume ) 6 mg/dL 7-18 Serum or plasma creatinine measurement (mass/volume) 0.73 mg/dL 0.60-1.30 Serum or plasma urea nitrogen/creatinine mass ratio 8 NRG Serum or plasma creatinine measurement w ith calculation of estimated glomerular filtration rate > NRG Serum or plasma glucose measurement (mass/volume) 98 mg/dL 70-105 Serum or plasma calcium measurement (mass/volume) 9.0 mg/dL 8.5-10.1 Serum or plasma total bilirubin measurement (mass/volu me) 0.5 mg/dL 0.1-1.0 Serum or plasma alkaline phosphatase woody surement (enzymatic activity/volume) 92 U/L 40-136 Serum or plasma aspartate aminotransfera se measurement (enzymatic activity/volume) 24 U/L 5-34 Serum or plasma alanine aminotransferase measurement (enzymatic activity/volume) 14 U/L 0-55 Serum or plasma protein measurement (mass/volume) 7.2 g/dL 6.4-8.2 Serum or plasma albumin measurement (mass/volume) 3.6 g/dL 3.2-4.5 Lipid 1996 panel - 06/11/17 08:47 Serum or plasma triglyceride measurement (mass/volume) 93 mg/dL <150 Serum or plasma cholesterol measurement (mass/volume) 224 mg/dL < 200 Serum or plasma cholesterol in HDL measurement (mass/v olume) 80 mg/dL 40-60 Cholesterol in LDL [mass/volume] in serum or plasma by direct assay 123 mg/dL 1-129 Serum or plasma cholesterol in VLDL measurement (mass/ volume) 19 mg/dL 5-40 THYROID STIMULATING HORMONE - 06/11/17 0 8:47 THYROID STIMULATING HORMONE 2.09 u[iU]/mL 0.35-4.94 Complete urinalysis with reflex to cultu re - 06/11/17 09:00 Urine color determination YELLOW NRG Urine clarity determination CLEAR NR G Urine pH measurement by test strip 6.5 5-9 Specific gravity of urine by test strip 1.010 1.016-1.022 Urine protein assay by test strip, semi-quantitative NEGATIVE NEGATIVE Urine glucose detection by automated test strip NE GATIVE NEGATIVE Erythrocytes detection in urine sediment by light micr oscopy NEGATIVE NEGATIVE Urine ketones detection by automated test strip NE GATIVE NEGATIVE Urine nitrite detection by test strip NEGATIVE NEGATIVE Urine total bilirubin detection by test strip NEGA TIVE NEGATIVE Urine urobilinogen measurement by automated test strip (mass/volume) NORMAL NORMAL Urine leukocyte esterase detection by dipstick 1+ NEGATIVE Automated urine sediment erythrocyte cou nt by microscopy (number/high power field) NONE NRG Automated urine sediment leukocyte count by microscopy (number/high power field) [HPF] NRG Bacteria detection in urine sediment by light microsco py MODERATE NRG Squamous epithelial cells detection in u rine sediment by light microscopy 10-25 NRG Crystals detection in urine sediment by light microsco py NONE NRG Casts detection in urine sediment by light microscopy NONE NRG Mucus detection in urine sediment by light microscopy NEGATIVE NRG Complete urinalysis with reflex to culture YES NRG Bacterial urine culture - 06/11/17 09:00 Bacterial urine culture [id number] NRG COLONY COUNT 10,000/ML - 100,000/ML NRG FTX;REPORTABLE SENSITIVIES REPORTED 06/13/17 11:45 NRG URINE CULTURE RESULTS PLUS NRG Bacterial susceptibility panel - 7 09:00 Gentamicin susceptibility test by minimum inhibitory c oncentration <= NRG Trimethoprim/sulfamethoxazole susceptibi lity test by minimum inhibitoryconcentration S NRG Ampicillin susceptibility test by minimum inhibitory c oncentration 4 NRG Tobramycin susceptibility test by minimum inhibitory c oncentration <= NRG Cefazolin susceptibility test by minimum inhibitory co ncentration <= NRG Ceftriaxone susceptibility test by minimum inhibitory concentration <= NRG Ampicillin/sulbactam susceptibility test by minimum inhibitory concentration <= NRG Piperacillin/tazobactam susceptibility t est by minimum inhibitory concentration S NRG Ciprofloxacin susceptibility test by minimum inhibitor y concentration <= NRG Meropenem susceptibility test by minimum inhibitory co ncentration <= NRG Nitrofurantoin susceptibility test by mi nimum inhibitory concentration <= NRG Aztreonam susceptibility test by minimum inhibitory co ncentration <= NRG Extended spectrum beta lactamase (ESBL) producing bacteria susceptibility test by minimum inhibitory concentration - [facility] Bacterial susceptibility panel - 7 09:00 Gentamicin susceptibility test by minimum inhibitory c oncentration <= NRG Trimethoprim/sulfamethoxazole susceptibi lity test by minimum inhibitoryconcentration S NRG Ampicillin susceptibility test by minimum inhibitory c oncentration >= NRG Tobramycin susceptibility test by minimum inhibitory c oncentration <= NRG Cefazolin susceptibility test by minimum inhibitory co ncentration >= NRG Ceftriaxone susceptibility test by minimum inhibitory concentration <= NRG Ampicillin/sulbactam susceptibility test by minimum inhibitory concentration I NRG Piperacillin/tazobactam susceptibility t est by minimum inhibitory concentration S NRG Ciprofloxacin susceptibility test by minimum inhibitor y concentration <= NRG Meropenem susceptibility test by minimum inhibitory co ncentration <= NRG Nitrofurantoin susceptibility test by mi nimum inhibitory concentration 128 NRG Aztreonam susceptibility test by minimum inhibitory co ncentration <= NRG Bacterial susceptibility panel - 7 09:00 Gentamicin susceptibility test by minimum inhibitory c oncentration <= NRG Trimethoprim/sulfamethoxazole susceptibi lity test by minimum inhibitoryconcentration <= NRG Tobramycin susceptibility test by minimum inhibitory c oncentration <= NRG Cefazolin susceptibility test by minimum inhibitory co ncentration 32 NRG Ceftriaxone susceptibility test by minimum inhibitory concentration <= NRG Piperacillin/tazobactam susceptibility t est by minimum inhibitory concentration <= NRG Ciprofloxacin susceptibility test by minimum inhibitor y concentration 1 NRG Meropenem susceptibility test by minimum inhibitory co ncentration <= NRG Aztreonam susceptibility test by minimum inhibitory co ncentration >= NRG Complete urinalysis with reflex to cultu re - 06/27/17 13:15 Urine color determination YELLOW NRG Urine clarity determination CLEAR NR G Urine pH measurement by test strip 7 5-9 Specific gravity of urine by test strip 1.010 1.016-1.022 Urine protein assay by test strip, semi-quantitative NEGATIVE NEGATIVE Urine glucose detection by automated test strip NE GATIVE NEGATIVE Erythrocytes detection in urine sediment by light micr oscopy NEGATIVE NEGATIVE Urine ketones detection by automated test strip NE GATIVE NEGATIVE Urine nitrite detection by test strip NEGATIVE NEGATIVE Urine total bilirubin detection by test strip NEGA TIVE NEGATIVE Urine urobilinogen measurement by automated test strip (mass/volume) NORMAL NORMAL Urine leukocyte esterase detection by dipstick NEG ATIVE NEGATIVE Automated urine sediment erythrocyte cou nt by microscopy (number/high power field) NONE NRG Automated urine sediment leukocyte count by microscopy (number/high power field) RARE NRG Bacteria detection in urine sediment by light microsco py FEW NRG Squamous epithelial cells detection in u rine sediment by light microscopy 5-10 NRG Crystals detection in urine sediment by light microsco py NONE NRG Casts detection in urine sediment by light microscopy NONE NRG Mucus detection in urine sediment by light microscopy NEGATIVE NRG Complete urinalysis with reflex to culture NO NRG Complete urinalysis with reflex to cultu re - 11/05/18 10:00 Urine color determination YELLOW NRG Urine clarity determination CLEAR NR G Urine pH measurement by test strip 7 5-9 Specific gravity of urine by test strip 1.005 1.016-1.022 Urine protein assay by test strip, semi-quantitative NEGATIVE NEGATIVE Urine glucose detection by automated test strip NE GATIVE NEGATIVE Erythrocytes detection in urine sediment by light micr oscopy NEGATIVE NEGATIVE Urine ketones detection by automated test strip NE GATIVE NEGATIVE Urine nitrite detection by test strip NEGATIVE NEGATIVE Urine total bilirubin detection by test strip NEGA TIVE NEGATIVE Urine urobilinogen measurement by automated test strip (mass/volume) NORMAL NORMAL Urine leukocyte esterase detection by dipstick NEG ATIVE NEGATIVE Automated urine sediment erythrocyte cou nt by microscopy (number/high power field) NONE NRG Automated urine sediment leukocyte count by microscopy (number/high power field) NONE NRG Bacteria detection in urine sediment by light microsco py TRACE NRG Squamous epithelial cells detection in u rine sediment by light microscopy 2-5 NRG Crystals detection in urine sediment by light microsco py NONE NRG Casts detection in urine sediment by light microscopy NONE NRG Mucus detection in urine sediment by light microscopy NEGATIVE NRG Complete urinalysis with reflex to culture NO NRG Whole blood hemoglobin and hematocrit pa valeria - 11/05/18 10:05 Venous blood hemoglobin measurement (mass/volume) 14.4 g/dL 11.5-16.0 Blood hematocrit (volume fraction) 41 % 35-52 Comprehensive metabolic panel - 11/05/18 10:05 Serum or plasma sodium measurement (moles/volume) 139 mmol/L 135-145 Serum or plasma potassium measurement (moles/volume) 4.2 mmol/L 3.6-5.0 Serum or plasma chloride measurement (moles/volume) 104 mmol/L 98-107 Carbon dioxide 25 mmol/L 21-32 Serum or plasma anion gap determination (moles/volume) 10 mmol/L 5-14 Serum or plasma urea nitrogen measurement (mass/volume ) 4 mg/dL 7-18 Serum or plasma creatinine measurement (mass/volume) 0.68 mg/dL 0.60-1.30 Serum or plasma urea nitrogen/creatinine mass ratio 6 NRG Serum or plasma creatinine measurement w ith calculation of estimated glomerular filtration rate > NRG Serum or plasma glucose measurement (mass/volume) 83 mg/dL 70-105 Serum or plasma calcium measurement (mass/volume) 9.5 mg/dL 8.5-10.1 Serum or plasma total bilirubin measurement (mass/volu me) 0.5 mg/dL 0.1-1.0 Serum or plasma alkaline phosphatase woody surement (enzymatic activity/volume) 103 U/L 40-136 Serum or plasma aspartate aminotransfera se measurement (enzymatic activity/volume) 30 U/L 5-34 Serum or plasma alanine aminotransferase measurement (enzymatic activity/volume) 17 U/L 0-55 Serum or plasma protein measurement (mass/volume) 7.2 g/dL 6.4-8.2 Serum or plasma albumin measurement (mass/volume) 3.8 g/dL 3.2-4.5 CALCIUM CORRECTED 9.7 mg/dL 8.5-10.1 Lipid 1996 panel - 11/05/18 10:05 Serum or plasma triglyceride measurement (mass/volume) 66 mg/dL <150 Serum or plasma cholesterol measurement (mass/volume) 242 mg/dL < 200 Serum or plasma cholesterol in HDL measurement (mass/v olume) 109 mg/dL 40-60 Cholesterol in LDL [mass/volume] in serum or plasma by direct assay 113 mg/dL 1-129 Serum or plasma cholesterol in VLDL measurement (mass/ volume) 13 mg/dL 5-40 Complete urinalysis with reflex to cultu re - 12/31/19 09:10 Urine color determination YELLOW NRG Urine clarity determination CLEAR NR G Urine pH measurement by test strip 7.5 5-9 Specific gravity of urine by test strip <= 1.016-1.022 Urine protein assay by test strip, semi-quantitative NEGATIVE NEGATIVE Urine glucose detection by automated test strip NE GATIVE NEGATIVE Erythrocytes detection in urine sediment by light micr oscopy NEGATIVE NEGATIVE Urine ketones detection by automated test strip NE GATIVE NEGATIVE Urine nitrite detection by test strip NEGATIVE NEGATIVE Urine total bilirubin detection by test strip NEGA TIVE NEGATIVE Urine urobilinogen measurement by automated test strip (mass/volume) 0.2 mg/dL < = 1.0 Urine leukocyte esterase detection by dipstick NEG ATIVE NEGATIVE Automated urine sediment erythrocyte cou nt by microscopy (number/high power field) NONE NRG Automated urine sediment leukocyte count by microscopy (number/high power field) RARE NRG Bacteria detection in urine sediment by light microsco py NEGATIVE NRG Squamous epithelial cells detection in u rine sediment by light microscopy RARE NRG Crystals detection in urine sediment by light microsco py NONE NRG Casts detection in urine sediment by light microscopy NONE NRG Mucus detection in urine sediment by light microscopy NEGATIVE NRG Complete urinalysis with reflex to culture NO NRG Whole blood basic metabolic panel - 12/21 09:14 Serum or plasma sodium measurement (moles/volume) 136 mmol/L 135-145 Serum or plasma potassium measurement (moles/volume) 4.5 mmol/L 3.6-5.0 Serum or plasma chloride measurement (moles/volume) 99 mmol/L 98-107 Carbon dioxide 24 mmol/L 21-32 Serum or plasma anion gap determination (moles/volume) 13 mmol/L 5-14 Serum or plasma urea nitrogen measurement (mass/volume ) 7 mg/dL 7-18 Serum or plasma creatinine measurement (mass/volume) 0.73 mg/dL 0.60-1.30 Serum or plasma urea nitrogen/creatinine mass ratio 10 NRG Serum or plasma creatinine measurement w ith calculation of estimated glomerular filtration rate > NRG Serum or plasma glucose measurement (mass/volume) 88 mg/dL 70-105 Serum or plasma calcium measurement (mass/volume) 9.5 mg/dL 8.5-10.1 Lipid 1996 panel - 12/31/19 09:14 Serum or plasma triglyceride measurement (mass/volume) 62 mg/dL <150 Serum or plasma cholesterol measurement (mass/volume) 227 mg/dL < 200 Serum or plasma cholesterol in HDL measurement (mass/v olume) 111 mg/dL 40-60 Cholesterol in LDL [mass/volume] in serum or plasma by direct assay 107 mg/dL 1-129 Serum or plasma cholesterol in VLDL measurement (mass/ volume) 12 mg/dL 5-40 Encounters ACCT No. Visit Date/Time Discharge Status Pt. Type Provider Facility Loc./Unit Complaint [id number] 11/12/2012 14:35:00 Document Registration [id number] 11/05/2012 14:44:00 Document Registration [id number] 11/04/2012 14:35:00 Document Registration [id number] 12/31/2019 08:42:00 020 23:59:59 CLS Outpatient HARPER CURTIS MD [facility] HTN [id number] 11/10/2018 13:45:00 019 15:00:00 DIS Emergency JARRED MALAVE APRN [facility] ER L KNEE PAIN;FALL [id number] 11/05/2018 09:54:00 019 23:59:59 CLS Outpatient HARPER CURTIS MD [facility] HTN,EDEMA [id number] 06/27/2017 12:59:00 018 23:59:59 CLS Outpatient HARPER CURTIS MD [facility] Z09 [id number] 06/11/2017 08:26:00 017 23:59:59 CLS Outpatient HARPER CURTIS MD [facility] LAB I10, E78.5 [id number] 06/03/2016 08:46:00 016 23:59:59 CLS Outpatient HARPER CURTIS MD [facility] HTN [id number] 03/14/2015 09:29:00 015 23:59:59 CLS Outpatient HARPER CURTIS MD [facility] HYDROCODONE THREAPY [id number] 03/17/2014 11:35:00 014 23:59:59 CLS Outpatient HARPER CURTIS MD [facility] HX OF TRAN,HYPERTENSION [id number] 01/22/2013 17:48:00 013 00:01:00 DIS Outpatient CALE CLARKE MD [facility] SURG RCR DVT [id number] 02/09/2013 13:32:00 23:59:59 CLS Outpatient [id number] 01/25/2013 12:58:00 013 23:59:59 CLS Outpatient JOAQUIM MARTI MD [facility] DVT [id number] 12/07/2012 06:46:00 013 12:05:00 DIS Outpatient JOAQUIM MARTI MD [facility] SD LEFT KNEE TORN MEDIAL A ND LATERAL MENISCUS [id number] 12/02/2012 08:38:00 013 23:59:59 CLS Outpatient JOAQUIM MARTI MD [facility] PREOP LEFT KNEE TORN MEDIAL A ND LATERAL MENISCUS [id number] 11/25/2012 14:35:00 013 23:59:59 CLS Outpatient [id number] 11/10/2012 07:57:00 013 23:59:59 CLS Outpatient ARABELLA YUN [facility] RAD L KNEE MMT,MEDIAL RETIN ACULAR TEAR [id number] 11/09/2012 14:05:00 013 23:59:59 CLS Outpatient ARABELLA YUN [facility] RAD MMT [id number] 06/13/2014 14:44:00 Document Registration [id number] 04/23/2013 00:00:00 Document Registration [id number] 10/23/2010 13:10:00 Document Registration [id number] 01/05/2020 15:53:00 01/05/2020 23:59 :00 DIS Outpatient Harper Curtis [id number] 10/11/2019 09:24:00 10/11/2019 23:59 :00 DIS Outpatient Harper Curtis [id number] 07/23/2019 13:30:00 07/23/2019 23:59 :00 DIS Outpatient Harper Curtis [id number] 04/29/2019 14:24:00 04/29/2019 23:59: 00 DIS Outpatient Harper Curtis [id number] 02/05/2019 09:14:00 02/05/2019 23:59: 00 DIS Outpatient Harper Curtis [id number] 07/12/2016 10:10:00 07/12/2016 23:59: 00 DIS Outpatient Harper Curtis [id number] 03/13/2018 08:58:00 Document Registration [id number] 12/19/2017 09:26:00 Document Registration [id number] 09/26/2017 09:32:00 Document Registration [id number] 06/04/2017 09:44:00 Document Registration [id number] 03/07/2017 09:39:00 Document Registration
--- NOTE | 2020-01-12 10:38 | Diagnostic Imaging Report ---
INDICATION: Fall with right shoulder pain AP and angled views of the right clavicle reveal mildly displaced fracture through the distal shaft of the right clavicle. There appears to be maintenance of acromioclavicular joint. No other acute fracture or malalignment is identified. IMPRESSION: Mildly displaced distal right clavicle fracture without associated dislocation. Dictated by: Dictated on workstation # [id number]
--- NOTE | 2020-01-12 10:38 | Diagnostic Imaging Report ---
INDICATION: Fall with right shoulder injury. FINDINGS: AP, oblique, and trans-scapular views of the right shoulder reveal mildly displaced fracture through the distal clavicle without evidence of dislocation. No other acute fracture or malalignment is identified. Note is made of linear metallic object projecting over the midchest on the AP image. This is not confirmed on other views and may be artifactual. IMPRESSION: 1. Mildly displaced distal right clavicle fracture without dislocation. Otherwise, no acute abnormality is identified. 2. Clinical correlation would be useful with regard to wire-like metallic object projecting over the central chest on a single view. Dictated by: Dictated on workstation # [id number]
[2020-01-12 10:48] VITALS: BP 145/94
== END 2020-01-12 10:48 | disposition home or self-care (01) ==
LOC: EDUNIT# 09:37 → ER 09:38
DX: S42.031A Displaced fracture of lateral end of right clavicle, initial encounter for closed fracture (principal); I10 Essential (primary) hypertension; F17.210 Nicotine dependence, cigarettes, uncomplicated; Z88.8 Allergy status to other drugs, medicaments and biological substances; W01.0XXA Fall on same level from slipping, tripping and stumbling without subsequent striking against object, initial encounter
CPT/HCPCS: 73000; 73030; 99283; A4565

== ENCOUNTER → 2020-01-19 | Outpatient (CLI) | payer OTHER ==
--- NOTE | 2020-01-19 10:29 | Diagnostic Imaging Report ---
EXAMINATION: Right clavicle at 9:37 AM. INDICATION: Injury, clavicular pain. TECHNIQUE: Two views of the right clavicle were obtained. FINDINGS: As noted on the prior exam of 01/12/2020, there is a mildly displaced fracture of the distal right clavicle. On this exam, the fracture fragments are similar in alignment to the prior study. There is minimal (if any) healing callus formation present. No other fracture or acute bony abnormality is noted. IMPRESSION: 1. The fracture of the distal tip of the right clavicle seen previously is again evident and does not appear to have changed adversely. The main fracture fragments are similar in position to the prior study. 2. There is no acute bony abnormality noted. Dictated by: Dictated on workstation # [id number]
== END ==
LOC: ORTHO 09:27
PROVIDERS: ATTEND Orthopaedic Surgery
DX: S42.031A Displaced fracture of lateral end of right clavicle, initial encounter for closed fracture (principal); X58.XXXA Exposure to other specified factors, initial encounter
CPT/HCPCS: 73000

== ENCOUNTER → 2020-03-02 | Outpatient (CLI) | payer MEDICAID ==
--- NOTE | 2020-03-02 11:49 | Diagnostic Imaging Report ---
INDICATION: Follow-up right clavicle fracture. Time of exam 10:20 AM Correlation is made with prior radiograph from 02/02/2020. Obliquely oriented distal clavicle fracture is again noted. No significant callus formation is seen. Overall alignment is anatomic. Acromioclavicular alignment is normal. Acromiohumeral space is normal. IMPRESSION: Distal clavicle fracture, similar to examination one month earlier. Fracture line remains clearly visible. Dictated by: Dictated on workstation # [id number]
== END ==
LOC: ORTHO 10:05
PROVIDERS: ATTEND Orthopaedic Surgery
DX: S42.031D Displaced fracture of lateral end of right clavicle, subsequent encounter for fracture with routine healing (principal); X58.XXXD Exposure to other specified factors, subsequent encounter
CPT/HCPCS: 73000

== ENCOUNTER → 2021-03-29 | Outpatient (CLI) | payer MEDICAID ==
[2021-03-29 09:03] LABS: BILIRUBIN,URINE NEGATIVE (NEGATIVE); CLARITY,URINE CLEAR; COLOR,URINE YELLOW; GLUCOSE, URINE (UA) NEGATIVE (NEGATIVE); KETONES,URINE NEGATIVE (NEGATIVE); LEUKOCYTE ESTERASE ,URINE NEGATIVE (NEGATIVE); NITRITE,URINE NEGATIVE (NEGATIVE); PH,URINE 7.5 (5-9); PROTEIN,URINE NEGATIVE (NEGATIVE)
[2021-03-29 09:12] LABS: BACTERIA,URINE NEGATIVE /HPF
[2021-03-29 09:39] LABS: CALCIUM 9.6 MG/DL (8.5-10.1); CREATININE SERUM 0.8 MG/DL (0.60-1.30); POTASSIUM 4.9 MMOL/L (3.6-5.0)
== END ==
LOC: LAB 08:42
PROVIDERS: ATTEND Family Medicine
DX: I10 Essential (primary) hypertension (principal)
CPT/HCPCS: 36415; 80048; 80061; 81000; 84443